=== PATIENT | female | born 1990 | race Caucasian/White ===

== ENCOUNTER 2021-07-08 13:18 | Emergency (ER) | payer OTHER, SELFPAY ==
--- NOTE | ~2021-07-08 | XR_ITS ---
EXAMINATION: XR finger 5th LT min 2V INDICATION: Left fifth finger pain TECHNIQUE: Four views of the left fifth finger are obtained. COMPARISON: None available FINDINGS: Bone alignment is normal. There is no fracture. There is mild soft tissue swelling of the f seng. IMPRESSION: 1. No acute osseous abnormality. Reviewed, dictated and finalized at location A.
[2021-07-08 13:44] VITALS: BP 129/69; PULSE 80; RESP 16; TEMP 36.6; O2SAT 100
[2021-07-08] MEDS: KETOROLAC (*BKC) 60 MG/2 ML VIAL IM (13:59)
--- NOTE | 2021-07-08 14:01 | ED.GENADULT ---
HPI - General Adult General Chief complaint: Extremity Injury, Upper Stated complaint: lt pinky inj Source: patient Mode of arrival: ambulatory Limitations: no limitations History of Present Illness HPI narrative: Patient presents for evaluation of pain in the fifth digit of the left hand. 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 She rates her pain as 9/10 and described as throbbing. Movement makes her pain worse. She has not taken any medications to assist with her symptoms. She is right hand dominant. Last tetanus was within the last five years. Related Data Home Medications Medication Instructions Recorded Confirmed metformin 07/08/21 Allergies Allergy/AdvReac Type Severity Reaction Status Date / Time amoxicillin [From Augmentin] Allergy Unknown Verified 07/08/21 13:34 clavulanic acid Allergy Unknown Verified 07/08/21 13:34 [From Augmentin] Review of Systems Review of Systems: CONSTITUTIONAL: Denies fever, chills, or sweats. EYES: Denies visual changes, redness, or discharge. ENT: Denies rhinorrhea, congestion, sore throat, or otalgia. CARDIOVASCULAR: Denies chest pain, palpitations, or edema. RESPIRATORY: Denies cough or dyspnea. GASTROINTESTINAL: Denies abdominal pain, nausea, vomiting, or diarrhea. GENITOURINARY: Denies dysuria or hematuria. SKIN: Denies rash or itching. MUSCULOSKELETAL: Reports pain and swelling in fifth digit of left hand NEUROLOGIC: Denies headache, numbness, dizziness, or weakness. PSYCHIATRIC: Denies anxiety or depression. 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 HEAD: Normocephalic, atraumatic. EYES: PERRLA and EOMI. ENT: Nares clear, no rhinorrhea or epistaxis. Mucous membranes moist. Oropharynx without tonsillar hypertrophy exudate or other lesions. Bilateral TMs pearly squires nonbulging NECK: Supple. No adenopathy or masses. No carotid bruits or JVD CHEST: Clear to auscultation. No respiratory distress. No wheezes rales or rhonchi HEART: Regular rate and rhythm. No murmur heard. Normal peripheral pulses. ABDOMEN: Soft, nontender, nondistended, normal active bowel sounds. EXTREMITIES: Tenderness in middle and distal phalanges of fifth digit of left hand. 5th digit off left hand is edematous. Slight decrease in ROM of PIP and DIP of 5th digit of left hand SKIN: There is a puncture barry with bruising noted to the fifth digit of the left hand. Warm, dry, no rash. NEURO: No focal deficits. Alert and oriented x3. PSYCH: Normal mood and affect. Course Course Emergency Course: This is a 30-year-old female who presented for evaluation after crush injury at work. X-ray was negative for fracture. Up-to-date on tetanus. Provided with ice pack. Provided with splint. Advised RICE therapy. She may do ibuprofen for pain and swelling. Add tramadol to assist with pain nocturnally. Advised follow up outpatient for further evaluation and treatment and return for worsening symptoms. Pt in agreement with plan of care Level of Care: Express Care Visit Vital Signs Vital signs: Jeniffer
== END 2021-07-08 14:32 | disposition home or self-care (01) ==
PROVIDERS: Emergency Provider Nurse Practitioner; PCP Family Medicine
DX: S67.197A Crushing injury of left little finger, initial encounter (principal); X58.XXXA Exposure to other specified factors, initial encounter; E28.2 Polycystic ovarian syndrome
CPT/HCPCS: 29130; 73140; 96372; 99213; G0463; J1885